=== PATIENT | female | born 1950 | race Caucasian/White ===

== ENCOUNTER → 2017-04-10 | Outpatient (CLI) | payer MEDICARE, OTHER ==
--- NOTE | 2017-04-10 09:31 | US ---
EXAMINATION TYPE: US abdomen complete DATE OF EXAM: 04/10/2017 COMPARISON: NONE CLINICAL HISTORY: K43.9 Ventral hernia without obstruction or gangre. EXAM MEASUREMENTS: Liver Length: 23.5 cm Gallbladder Wall: SA CBD: .6 cm Spleen: 1.01 cm Right Kidney: 13.3 x 4.7 x 5.1 cm Left Kidney: 12.8 x 5.3 x 5.1 cm Limited due to patient body habitus and liver density. Pancreas: parts visualized appear wnl Liver: Increased attenuation, decreased visualization of vessels suggestive of fatty infiltrate; addis sures large in size Gallbladder: Surgically absent Evidence for sonographic Perez's sign: No CBD: wnl Spleen: wnl Right Kidney: wnl Left Kidney: wnl Upper IVC: parts visualized appear wnl Abd Aorta: parts visualized appear wnl Area of lump in RLQ scanned possible hernia seen; however, limited due to body habitus. Secondary dilip h attempted better visualization of area of concern. The liver is homogenous with increased attenuation suggestive of fatty infiltration. The intrahepati c portion of the IVC and proximal abdominal aorta are within normal limits. The gallbladder is surgi cassidy absent. Common bile duct is unremarkable. The visualized portions of the pancreas are homogeno us. The spleen is unremarkable. Kidneys are symmetric and free of hydronephrosis. No renal lesions are seen. IMPRESSION: 1. Fatty infiltration of the enlarged liver. 2. Suspected right lower quadrant abdominal hernia.
== END | disposition home or self-care (01) ==
LOC: RADUSWWP 08:12
PROVIDERS: ATTEND Family Medicine
DX: K76.0 Fatty (change of) liver, not elsewhere classified (principal); R16.0 Hepatomegaly, not elsewhere classified
CPT/HCPCS: 76700

== ENCOUNTER → 2017-05-13 | Outpatient (CLI) | payer MEDICARE, OTHER ==
[2017-05-13 13:32] LABS: Blood Urea Nitrogen 20 mg/dL (7-17); Non-African American GFR(MDRD) >60 (>60 ml/min/1.73 sqM)
--- NOTE | 2017-05-13 14:48 | CT ---
EXAMINATION TYPE: CT abdomen pelvis w con DATE OF EXAM: 05/13/2017 COMPARISON: 04/10/2017 ultrasound HISTORY: RLQ swelling CT DLP: 1927.6 mGycm Automated exposure control for dose reduction was used. CONTRAST: CT scan of the abdomen pelvis is performed with IV Contrast, patient injected with 100 mL of Omnipaqu e 300. FINDINGS- LUNG BASES-no change involving the lung base suggestive of scar or atelectasis.. LIVER/GB-previous cholecystectomy noted. Hepatic steatosis suspected. PANCREAS- No gross abnormality is seen. SPLEEN- No gross abnormality is seen. ADRENALS- No gross abnormality is seen. KIDNEYS/BLADDER-there is mild right-sided hydronephrosis with no definite renal or ureteral stones mi ld pelvic caliectasis. Subcentimeter upper pole left renal lesion too small to characterize. BOWEL-there is a [place] anterior abdominal wall hernia with the mouth measuring 5.6 cm. This conta ins multiple bowel loops but no evidence of obstruction or wall thickening. LYMPH NODES- No greater than 1cm abdominal or pelvic lymph nodes are appreciated. OSSEOUS STRUCTURES-hypertrophic change of the spine noted. Osteitis pubis condensans noted. Arthropat hy of the hips.. OTHER- small soft tissue lipoma along the anterior, wall on the right measuring 1 cm. IMPRESSION- 1. Mild right hydronephrosis with no definite calcification within the ureter or kidney. Correlate cl inically. 2. There is a [place] anterior abdominal wall hernia mouth measuring a diameter of 5.6 cm. No bowel wall thickening or obstruction.
== END | disposition home or self-care (01) ==
LOC: RADCTMAIN 12:04
PROVIDERS: ATTEND Surgery
DX: K43.9 Ventral hernia without obstruction or gangrene (principal); N13.30 Unspecified hydronephrosis
CPT/HCPCS: 82565; 84520; 74177; 36415; Q9967

== ENCOUNTER → 2020-08-14 | Outpatient (CLI) | payer MEDICARE, OTHER ==
--- NOTE | 2020-08-20 11:03 | MM ---
Reason for exam: screening (asymptomatic). Last mammogram was performed 6 years and 5 months ago. History: Excisional biopsy of the right breast. Physical Findings: A clinical breast exam by your physician is recommended on an annual basis and results should be correlated with mammographic findings. MG 3D Screening Mammo W/Cad Bilateral CC and MLO view(s) were taken. Prior study comparison: March 21, 2014, mammogram. October 05, 2012, mammogram. Benign appearing bilateral calcifications. No significant changes when compared with prior studies. ASSESSMENT: Benign, BI-RAD 2 RECOMMENDATION: Routine screening mammogram of both breasts in 1 year.
== END | disposition home or self-care (01) ==
LOC: RADMAMWWP 11:13
PROVIDERS: ATTEND Family Medicine
DX: Z12.31 Encounter for screening mammogram for malignant neoplasm of breast (principal)
CPT/HCPCS: 77063; 77067

== ENCOUNTER → 2022-09-09 | Outpatient (CLI) | payer MEDICARE, OTHER ==
--- NOTE | 2022-09-10 08:14 | MM ---
Reason for Exam: Screening (asymptomatic). Last mammogram was performed 2 year(s) and 1 month(s) ago. Patient History: Menarche at age 10. Excisional Biopsy on the Right side. Risk Values: Aziza 5 year model risk: 1.5%. NCI Lifetime model risk: 3.5%. Prior Study Comparison: 10/05/2012 Screening Mammogram, Unknown. 03/21/2014 Screening Mammogram, Unknown. 08/14/2020 Bilateral Screening Mammogram, [facility]. Tissue Density: The breast tissue is heterogeneously dense. This may lower the sensitivity of mammography. Findings: Analyzed By CAD. There is no suspicious group of microcalcifications or new suspicious mass in either breast. Overall Assessment: Negative, BI-RAD 1 Management: Screening Mammogram of both breasts in 1 year. A clinical breast exam by your physician is recommended on an annual basis and results should be correlated with mammographic findings. [facility] will attempt to contact patient to return for supplemental views and ultrasound if indicated. Electronically signed and approved by: Speedy Ribeiro DO
== END | disposition home or self-care (01) ==
LOC: RADMAMWWP 11:21
PROVIDERS: ATTEND Family Medicine
DX: Z12.31 Encounter for screening mammogram for malignant neoplasm of breast (principal)
CPT/HCPCS: 77063; 77067

== ENCOUNTER → 2024-03-15 | Outpatient (CLI) | payer MEDICARE, OTHER ==
--- NOTE | 2024-03-22 19:47 | MM ---
Reason for Exam: Screening (asymptomatic). Last mammogram was performed 1 year(s) and 6 month(s) ago. Patient History: Menarche at age 10. First Full-Term at age 21. Postmenopausal. Excisional Biopsy on the Right side. Sister had breast cancer, age 84. Risk Values: Aziza 5 year model risk: 4.0%. NCI Lifetime model risk: 8.5%. Prior Study Comparison: 03/21/2014 Screening Mammogram, Unknown. 08/14/2020 Bilateral Screening Mammogram, [facility]. 09/09/2022 Bilateral MG 3D screening mammo w/cad, [facility]. Tissue Density: There are scattered areas of fibroglandular density. Findings: Analyzed By CAD. Chronic nodularity on the left. There is no suspicious group of microcalcifications or new suspicious mass in either breast. Overall Assessment: Benign, BI-RAD 2 Management: Screening Mammogram of both breasts in 1 year. See note below in regards to patient's increased 5 year Aziza score. Patient should continue monthly self-breast exams. A clinical breast exam by your physician is recommended on an annual basis. This exam should not preclude additional follow-up of suspicious palpable abnormalities. Note on Aziza scores and lifetime risk: 1. A Aziza score greater than 3% is considered moderate risk. If this is the case, consider specialist referral to assess eligibility for a risk reducing agent. 2. If overall lifetime risk for the development of breast cancer is 20% or higher, the patient may qualify for future screening with alternating mammogram and breast MRI. Electronically signed and approved by: Fidel Smith M.D. Radiologist
== END | disposition home or self-care (01) ==
LOC: RADMAMWWP 16:39
PROVIDERS: ATTEND Family Medicine
DX: Z12.31 Encounter for screening mammogram for malignant neoplasm of breast (principal); Z78.0 Asymptomatic menopausal state; Z80.3 Family history of malignant neoplasm of breast
CPT/HCPCS: 77063; 77067